=== PATIENT | male | born 1950 | race Caucasian/White ===

== ENCOUNTER 2018-10-30 18:10 | Emergency (ER) | payer MEDICARE ==
[2018-10-30 20:17] LABS: #Basophils 0.1 thou/uL (0.0-0.2); #Eosinphils 0.3 thou/uL (0.0-0.7); #Monocytes 0.6 thou/uL (0.11-0.59); %Basophils 0.9 % (0.0-1.0); %Eosinophils 4.5 % (0.0-10.0); %Lymphocytes 16.8 % (21.0-51.0); %Monocytes 10.7 % (0.0-10.0); %Neutrophils 67.2 % (42.0-75.0); Mean Corpuscular HGB CONC 34.3 g/dL (32.0-36.0); Mean Corpuscular Hemoglobin 33.5 pg (27.0-31.0); Mean Corpuscular Volume 97.6 fL (78.0-98.0); Mean Platelet Volume 7.6 fL (7.4-10.4); Platelet Count 179 thou/uL (130-400); RBC Distribution Width 12.8 % (11.5-14.5); Red Blood Cell (RBC) Count 4.49 mill/uL (4.70-6.10)
[2018-10-30] MEDS ORDERED: Meclizine HCl 25 MG TAB ONE (20:18)
[2018-10-30 20:38] LABS: ALT (SGPT) 7 U/L (8-55); AST (SGOT) 12 U/L (5-34); Albumin 4.1 g/dL (3.4-4.8); Alkaline Phosphatase 142 U/L (40-150); Anion Gap 11 mmol/L (10-20); BUN (Urea Nitrogen) 10 mg/dL (8.4-25.7); Bilirubin, Total 0.5 mg/dL (0.2-1.2); Calc. Creatinine Clearance 0 mL/min (70-130); Calcium 9.1 mg/dL (7.8-10.44); Carbon Dioxide 28 mmol/L (23-31); Chloride 103 mmol/L (98-107); Estimated GFR-MDRD 85; Globulin 3.1 g/dL (2.4-3.5); Glucose 96 mg/dL (80-115); Potassium 3.7 mmol/L (3.5-5.1); Protein, Total 7.2 g/dL (5.8-8.1); Sodium 138 mmol/L (136-145)
[2018-10-30 20:41] LABS: Bilirubin Negative (Negative); Blood, Urine Negative (Negative); Clarity CLEAR (Clear); Glucose, Urine (Dipstick) 100 mg/dL (Negative); Leukocyte Negative (Negative); Nitrite Negative (Negative); Protein, Urine (Dipstick) Negative (Neg-Trace); Specific Gravity, Urine 1.022 (1.002-1.036)
== END 2018-10-30 22:53 | disposition home or self-care (01) ==
LOC: ERS 18:10
DX: R42 Dizziness and giddiness (principal); F17.210 Nicotine dependence, cigarettes, uncomplicated
CPT/HCPCS: 36415; 80053; 81003; 85025; 93005; 99284